=== PATIENT | female | born 2000 | race Caucasian/White ===

== ENCOUNTER 2025-02-23 18:50 | Emergency (ER) | payer OTHER, SELFPAY ==
[2025-02-23 18:54] VITALS: BP 130/86
[2025-02-23 20:25] VITALS: BMI 21.1
[2025-02-23 20:31] VITALS: BP 131/92
--- NOTE | 2025-02-23 20:40 | ED.GENMED ---
History of Present Illness
General
Chief Complaint: Cardiac Symptoms
Source: patient
Exam Limitations: none
Time Seen by Provider: 02/23/25 20:31
History of Present Illness
History of Present Illness:
See MDM
Past History
Past History
ED Past Medical History: Psychiatric and Other (Tachycardia)
ED Past Surgical History: Orthopedic
Social History
Tobacco: Non-smoker
Alcohol: None
Phy Exam
Physical Exam
Physical Exam:
See MDM
Course
Orders/Labs/Results
Orders:
Orders
02/23/25 19:00
Electrocardiogram (*1) Urgent
Reason for Study: Tachycardia
EKG- Treatment ONCE
02/23/25 20:39
Quetiapine Fumarate [Seroquel] 25 mg PO NOW STA
Test Result ONCE
02/23/25 20:56
Oxcarbazepine [Trileptal] 150 mg PO NOW STA
Risperidone [Risperdal] 0.5 mg PO NOW STA
02/23/25 21:00
Complete Blood Count/With Diff Urgent
Comprehensive Metabolic Panel Urgent
HCG, Serum Qualitative Screen Urgent
Abnormal Lab Results
02/23/25
21:00
WBC 12.7 H 10^3/uL
(4.8-10.8)
MCH 31.6 H pg
(27.0-31.0)
Abs Immat Gran (auto) 0.1 H 10^3/uL
(0-0.05)
Absolute Neuts (auto) 8.2 H 10^3/uL
(1.4-6.5)
Absolute Monos (auto) 1.1 H 10^3/uL
(0.1-0.6)
BUN 6 L mg/dl
(7-17)
Glucose 132 H mg/dl
(70-99)
02/23/25 21:00
02/23/25 21:00
Vital Signs
Initial and Last Documented VS:
Initial Vital Signs
Temp Pulse Resp BP Pulse Ox
98.5 F 147 20 130/86 98
02/23/25 18:54 02/23/25 18:54 02/23/25 18:54 02/23/25 18:54 02/23/25 18:54
Last Documented Vital Signs
Temp Pulse Resp BP Pulse Ox
98.5 F 73 17 131/92 99
02/23/25 18:54 02/23/25 20:31 02/23/25 20:31 02/23/25 20:31 02/23/25 20:31
MDM/Problems Addressed
Differential Diagnosis Includes:
HPI and MDM Narrative:
24-year-old female presenting with tachycardia, chest discomfort and chills. Patient states she has a diagnosis of inappropriate tachycardia and has seen cardiology. Patient is on several medications but she is visiting the area for a job
interview. She only took a few days worth of medications. However, the job interview was taking longer than expected and she ran out of medications.
When I enter the room, patient is calm and cooperative. She is in no acute distress. As we start to talk, she starts to shiver and appears to have what appears to be a panic attack. Given that she has been without similar medications for a few
days, we will give her nighttime doses or missed medications. I will write a prescription for 3 days worth of medication since she is leaving to go home soon.
Physical exam
General: Well appearing and non-toxic
HEENT: protecting airway
Neck: appears supple
CV: No evidence of cyanosis. No murmur. Intermittent tachycardia noted
Resp: No accessory muscle use. Lungs clear
Abd: Non-distended
Extremities: No deformities. No leg edema or unilateral tenderness
Neuro: alert
Psych: Anxious
Skin: Intact
Problems Addressed including Acute and Chronic Conditions affecting care:
1. Tachycardia
Acuity: acute
Prognosis: stable
Details: Patient has a prior history of tachycardia. It appears intermittent. Will provide medications that she has missed. We discussed possible withdrawal versus anxiety
Updates
On reevaluation after medication, patient feeling much better and feels comfortable going home
Differential Diagnosis (but not limited to): Tachycardia, anxiety
Testing considered: D-dimer but there is no clinical signs of DVT
Drug therapy (if applicable): OTC meds, please see d/c instruction regarding Rx drugs
Amount and/or Complexity of Data Reviewed
Clinical info obtained from: Patient
External data reviewed: N/A
Labs I independently reviewed (but not limited to): Mild leukocytosis which is likely reactive
Radiology: N/A
Pulse Ox: not hypoxic
EKG independently reviewed: Sinus tachycardia, normal axis, no STEMI
Order Processing Specialist: Sinus rhythm
Critical Care: N/A
Risk of Complication:
Social Determinants of health: Good social support
Discussed with other providers: N/A
Escalation of Care includes Admit/Obs: After being observed in the Emergency Department, pt stable for discharge.
Occasional wrong word or 'sound a like' substitutions may have occurred due to the inherent limitations of voice recognition software. Read the chart carefully and recognize, using context, where substitutions have occurred.
*Critical Care Note
Total Time (30-74mins, 75-104mins- exclusive of procedures): Not Applicable
ED Attending Note
-
Portions of this chart may have been created with voice recognition software.� Occasional wrong word or��sound alike� substitutions may have occurred due to the inherent limitations of voice recognition software.
Discharge Plan
Departure
Patient Disposition: Home (Routine Discharge)
Date of Disposition: 02/23/25
Time of Disposition: 22:06
Patient with high blood pressure during this ER visit?: No
Discharge Problem:
Tachycardia
Prescriptions:
New
venlafaxine 75 mg capsule,extended release 24hr
225 mg PO DAILY 3 Days Qty: 9 0RF
risperidone 0.5 mg tablet
0.5 mg PO HS 3 Days Qty: 3 0RF
quetiapine 25 mg tablet
25 mg PO HS 3 Days Qty: 3 0RF
oxcarbazepine 150 mg tablet
150 mg PO BID 3 Days Qty: 6 0RF
Activity Restrictions/Additional Instructions:
Please return for any worsening symptoms.
You may return at any time if you have further concerns.
Please follow up with your doctor at the first available appointment, preferably this week.
Thank you for choosing [facility].
Interventions
Interventions:
*Risk Screen - Suicide Last Done: 02/23/25 20:25
*General Assessment Last Done: 02/23/25 20:25
*Neglect/Abuse Screening Last Done: 02/23/25 20:25
*ED- Fall Risk Assessment Last Done: 02/23/25 20:25
*ED COVID-19 Vaccine History Last Done: 02/23/25 20:25
ED- Pulmonary Assessment Last Done: 02/23/25 20:25
ED- Cardiac Assessment Last Done: 02/23/25 20:25
Discharge Date and Time
Print Language: [facility]
[2025-02-23] MEDS: SEROQUEL 25 MG PO (20:54)
[2025-02-23] MEDS: RISPERDAL 0.5 MG PO (21:06)
[2025-02-23] MEDS: TRILEPTAL 150 MG PO (21:06)
[2025-02-23 21:15] LABS: % Basophils 0.5 % (0-2); % Eosinophils 0.2 % (0-6); % Immature Granulocytes 0.4 % (0-0.5); % Lymphocytes 25.8 % (20.5-51.1); % Monocytes 8.6 % (1.7-9.3); % Neutrophils 64.5 % (42.2-75.2); Absolute Basophils 0.1 10^3/uL (0-0.2); Absolute Immature Granulocytes 0.1 10^3/uL (0-0.05); Absolute Lymphocytes 3.3 10^3/uL (1.2-3.4); Absolute Monocytes 1.1 10^3/uL (0.1-0.6); Absolute Neutrophils 8.2 10^3/uL (1.4-6.5); Hematocrit 39.7 % (37.0-47.0); Hemoglobin 13.9 g/dL (12.0-16.0); Mean Corpuscular Hgb 31.6 pg (27.0-31.0); Mean Corpuscular Volume 90.2 fL (81.0-99.0); Mean Platelet Volume 8.2 fL (7.4-10.4); Nucleated Red Blood Cells % 0 %; Platelet Count 306 10^3/uL (130-400); Red Cell Dist. Width 11.9 % (11.5-14.5); White Blood Cell Count 12.7 10^3/uL (4.8-10.8)
[2025-02-23 21:29] LABS: HCG, Serum Qualitative Screen Negative
[2025-02-23 21:34] LABS: ALT (SGPT) 18 U/L (0-35); AST (SGOT) 23 U/L (14-36); Alkaline Phosphatase 67 U/L (38-126); Blood Urea Nitrogen 6 mg/dl (7-17); Calcium 9.8 mg/dl (8.4-10.2); Carbon Dioxide 25 mmol/L (22-30); Chloride 103 mmol/L (98-107); Estimated Creatinine Clearance 116 ml/min; Glucose 132 mg/dl (70-99); Potassium 4.1 mmol/L (3.5-5.1); Sodium 138 mmol/L (135-145); Total Bilirubin 0.4 mg/dl (0.2-1.3); Total Protein 7.4 g/dl (6.3-8.2); eGFR > 60.00
[2025-02-23 22:12] VITALS: BP 139/90
== END 2025-02-23 22:20 | disposition home or self-care (01) ==
LOC: EMR 18:50
PROVIDERS: EMERGENCY PHYSICIAN Student in an Organized Health Care Education/Training Program
DX: R00.0 Tachycardia, unspecified (principal); R07.89 Other chest pain
CPT/HCPCS: 99283; 80053; 84703; 85025; 93005